=== PATIENT | male | born 2000 | race Hispanic/Latino ===

== ENCOUNTER 2023-09-08 06:25 | Day surgery (SDC) | payer BC ==
[~2023-09-08] VITALS: Ht 188 cm; Wt 158.8 kg
[2023-09-08] VITALS (12 sets, daily range): BP systolic 101–126; BP diastolic 52–88; PULSE 58–88; RESP 14–18
[2023-09-08] MEDS: 0.9%NACL 1000ML 1,000 ML IV ONE (09:00)
[2023-09-08] MEDS ORDERED: PROPOFOL 10 MG/ML 20ML VIAL IV ONE ×2 (09:29)
[2023-09-08] MEDS ORDERED: LIDOCAINE PF 100MG/5ML (2%) SYRINGE 5ML ONE (09:29)
[2023-09-08] MEDS ORDERED: GLYCOPYRROLATE 0.2 MG/ML 5 ML VIAL ONE (09:31)
== END 2023-09-08 11:15 | disposition home or self-care (01) ==
LOC: DAH 06:25
PROVIDERS: ATTEND Student in an Organized Health Care Education/Training Program
DX: R63.4 Abnormal weight loss (principal); K31.7 Polyp of stomach and duodenum; K29.70 Gastritis, unspecified, without bleeding; K22.89 Other specified disease of esophagus; K44.9 Diaphragmatic hernia without obstruction or gangrene; K31.89 Other diseases of stomach and duodenum; K76.0 Fatty (change of) liver, not elsewhere classified; E66.01 Morbid (severe) obesity due to excess calories; Z68.43 Body mass index [BMI] 50.0-59.9, adult
CPT/HCPCS: 43239; J7030; J2001; J2704 ×2; J3490

== ENCOUNTER → 2024-02-24 | Outpatient (CLI) | payer BC ==
[2024-02-24 14:29] LABS: BASOPHILS # (AUTO) 0.02 K/uL (0.00-0.20); BASOPHILS % (AUTO) 0.3 % (0.0-5.0); EOSINOPHILS # (AUTO) 0.08 K/uL (0.00-0.70); EOSINOPHILS % (AUTO) 1.1 % (0.0-8.0); HEMATOCRIT 48.3 % (42-54); IMMATURE GRANULOCYTE ABSOLUTE 0.03 K/uL (0-1); LYMPHOCYTES # (AUTO) 2.9 K/uL (1.0-4.8); LYMPHOCYTES % (AUTO) 38.4 % (21.0-51.0); MEAN CORPUSCULAR HEMOGLOBIN 28.8 pg (27.0-33.0); MEAN CORPUSCULAR HGB CONC 33.7 g/dL (32.0-36.0); MEAN CORPUSCULAR VOLUME 85.3 fL (79-99); MONOCYTES # (AUTO) 0.6 K/uL (0.1-1.0); MONOCYTES % (AUTO) 7.7 % (3.0-13.0); NEUTROPHILS % (AUTO) 52.1 % (40.0-77.0); PLATELET COUNT (AUTO) 239 K/uL (130-400); RED BLOOD CELL COUNT(AUTO) 5.66 MIL/uL (4.50-6.20); RED CELL DISTRIBUTION WIDTH 13.7 % (11.0-15.5); WHITE BLOOD COUNT (AUTO) 7.6 K/uL (4.8-10.8)
[2024-02-24 14:39] LABS: INR 1.03 (0.85-1.15); PROTHROMBIN TIME 11.1 SEC (9.6-11.6)
[2024-02-24 14:40] LABS: PARTIAL THROMBOPLASTIN TIME 28.8 SEC (26.3-35.5)
[2024-02-24 14:46] LABS: ALBUMIN 3.8 g/dL (3.5-5.0); BILIRUBIN,TOTAL 0.5 mg/dL (0.2-1.0); POTASSIUM 4.1 mmol/L (3.5-5.1); TOTAL PROTEIN, SERUM 7.7 g/dL (6.0-8.3)
--- NOTE | 2024-02-25 06:43 | EKG ---
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
== END | disposition home or self-care (01) ==
LOC: DAH 10:00 → EDSTATUS 13:00
PROVIDERS: ATTEND Surgery
DX: R94.31 Abnormal electrocardiogram [ECG] [EKG] (principal); K44.9 Diaphragmatic hernia without obstruction or gangrene; E66.01 Morbid (severe) obesity due to excess calories
CPT/HCPCS: 86900; 80053; 85025; 85610; 85730; 86850; 86901; 36415; 93005; A6260

== ENCOUNTER 2024-03-10 11:44 | Observation (INO) | payer BC ==
[2024-03-09 15:24] VITALS: BP 120/66; PULSE 55; RESP 18; TEMP 97.4
--- NOTE | 2024-03-09 16:10 | NUR ---
RE: EKG REPORTED EKG RESULTS TO DR SÁNCHEZ, NO NEW ORDERS RECEIVED. (CARDIAC CLEARANCE IN CHART)
[2024-03-09 16:37] LABS: BASOPHILS # (AUTO) 0.02 K/uL (0.00-0.20); BASOPHILS % (AUTO) 0.3 % (0.0-5.0); EOSINOPHILS # (AUTO) 0.07 K/uL (0.00-0.70); HEMATOCRIT 46.8 % (42-54); IMMATURE GRANULOCYTE ABSOLUTE 0.03 K/uL (0-1); LYMPHOCYTES # (AUTO) 2.7 K/uL (1.0-4.8); LYMPHOCYTES % (AUTO) 36.7 % (21.0-51.0); MEAN CORPUSCULAR HEMOGLOBIN 28.8 pg (27.0-33.0); MEAN CORPUSCULAR HGB CONC 33.8 g/dL (32.0-36.0); MEAN CORPUSCULAR VOLUME 85.2 fL (79-99); MONOCYTES # (AUTO) 0.5 K/uL (0.1-1.0); MONOCYTES % (AUTO) 7.2 % (3.0-13.0); NEUTROPHILS % (AUTO) 54.4 % (40.0-77.0); PLATELET COUNT (AUTO) 234 K/uL (130-400); RED BLOOD CELL COUNT(AUTO) 5.49 MIL/uL (4.50-6.20); RED CELL DISTRIBUTION WIDTH 13.7 % (11.0-15.5); WHITE BLOOD COUNT (AUTO) 7.3 K/uL (4.8-10.8)
[2024-03-09 16:47] LABS: CREATININE 1.1 mg/dL (0.5-1.3)
[2024-03-10] VITALS (24 sets, daily range): BP systolic 121–149; BP diastolic 65–87; PULSE 64–86; RESP 15–20; TEMP 97.1–98.2
[~2024-03-10] VITALS: Ht 182.9 cm; Wt 159.7 kg
--- NOTE | 2024-03-10 06:56 | EKG ---
[facility] Test Date: 2024-03-09 Test Time: 16:12:20 Pat Name: MATTHEW BENNETT Department: [facility] Room: 429 Gender: M Director Client: [id number] : 2000 Requested By: BREANNA GAMA Order Number: [id number] Reading MD: Aquiles Silverio Measurements Intervals [place] Rate: 53 P: 32 HI: 174 QRS: 26 QRSD: 92 T: 15 QT: 394 QTc: 371 Interpretive Statements Sinus rhythm Consider inferior infarct Compared to ECG 02/24/2024 14:59:22 No significant changes Electronically Signed On 03-13-2024 17:17:45 OUTPATIENT FACILITY PHYSICAL THERAPIST by Aquiles Silverio Please click the below link to view image of tracing.
[2024-03-10] MEDS: LACTATED RINGERS 1000ML 1,000 ML IV ONE (12:49)
[2024-03-10] MEDS: metRONIDazole 500MG/100ML BAG 200 ML ONE (12:49)
[2024-03-10] MEDS: ceFAZolin SODIUM 2 GM VIAL ONE (12:49)
[2024-03-10] MEDS: acetaMINOPHEN 100 ML ONE (13:22)
[2024-03-10] MEDS ORDERED: proPOFol 10 MG/ML 20ML VIAL IV ONE (13:26)
[2024-03-10] MEDS ORDERED: GLYCOPYRROLATE 0.2 MG/ML 5 ML VIAL ONE (13:26)
[2024-03-10] MEDS ORDERED: ondanSETRON 4MG INJ ONE (13:26)
[2024-03-10] MEDS ORDERED: MIDAZOLAM HCL 1 MG/ML 2ML VIAL ONE (13:26)
[2024-03-10] MEDS ORDERED: rocuRONium bROMide 10MG/1ML 5ML VL ONE ×2 (13:26→14:48)
[2024-03-10] MEDS ORDERED: NEOSTIGMINE METHYLSULFATE 1MG/ML IV ONE (13:26)
[2024-03-10] MEDS ORDERED: LIDOCAINE PF 100MG/5ML (2%) SYRINGE 5ML ONE (13:27)
[2024-03-10] MEDS ORDERED: FENTanyl CITRate PF 50 MCG/1 ML 2ML VIAL ONE ×2 (13:27→15:32)
[2024-03-10] MEDS ORDERED: dexaMETHasone SOD PHOSPHATE 4 MG/ML 1ML VIAL ONE (13:36)
[2024-03-10] MEDS: BUPIvacaine/PF 0.5% 30ML VIAL ONE (14:53)
[2024-03-10] MEDS: SUGAMMADEX SODIUM 200 MG/2 ML VIAL IV ONE (16:03)
--- NOTE | 2024-03-10 16:06 | OP ---
Operative Note: DATE OF PROCEDURE: 03/10/24 SURGEON: BRAENNA GAMA MD FAMILY ADVOCATE: Aftab Gama MD PA-C ANESTHESIA: General and Local ANESTHESIOLOGIST/BUGGY OPERATOR: [facility] [place]est[place] Team PREOPERATIVE DIAGNOSIS: Morbid obesity and associated comorbid conditions POSTOPERATIVE DIAGNOSIS: As above SYNOPSIS: Sleeve gastrectomy performed without incident. No significant hiatal hernia noted, therefore surgical correction deferred. PROCEDURE: 1. Robotic assisted sleeve gastrectomy 2. Omentoplasty 3. EGD ESTIMATED BLOOD LOSS: min, <30cc INDICATIONS: As above DESCRIPTION OF PROCEDURE: After standard precautions and preparations were undertaken a Veress needle and optical trocar were used to enter the abdominal cavity. All other instruments were placed under direct vision. The robotic system was docked in the standard fashion. We have been can our dissection by mobilizing the greater curve of the stomach. Care was taken to preserve the blood supply to the antrum. We mobilized up to the level of the angle of his and visualization of the left kathy of the diaphragm. My partner passed a 40 [place] bougie down of the stomach to decompress the stomach and allow for proper sizing during the stapling portion of the case. A linear stapler with staple line reinforcement was introduced into the abdominal cavity and we began stapling upwards towards the angle of his. Care was taken not to over tighten the incisura, not to cause any twisting or turning of the body of the stomach, and not to staple onto the GE junction. When stapling was complete the bougie was removed and my partner passed the EGD scope down into the stomach while I remained at the robotic console performing an omentoplasty. I sutured the nearby omentum to the cut edge of the stomach in order to reinforced the closure and add stability to the new free edge of the stomach. My partner insufflated the stomach to visualize the mucosal surfaces stomach. Everything appeared healthy and well perfused. There was no sign of leak or problem. The contour shape and size of the stomach was appropriate for a sleeve gastrectomy. The scope was removed without incident. The partial gastrectomy portion of the stomach was removed through one of our lateral trocar sites and the fascia was closed to prevent future hernia. All instrument counts were verified as correct including needles and sponges prior to ending the case. BREANNA GAMA MD Mar 10, 2024 16:06
--- NOTE | 2024-03-10 16:14 | PN ---
GENERAL SURGERY PROGRESS NOTE Date/Time Patient Seen: [03/10/2024, 1615 ] Problem List: [ ] Interval History: [Postop day 0. Pain tolerable with p.r.n. medication. ] Current Medications Medications (Trade) Dose Ordered Sig/Abimael Route Start Time Stop Time Status Last Admin Dose Admin Enoxaparin Sodium (Lovenox) 60 mg Q12H SQ 03/10/24 16:30 04/09/24 16:29 UNV Famotidine (Pepcid 20mg Vial) 20 mg BID IV 03/10/24 21:00 04/09/24 20:59 UNV Lactated Ringer's 1,000 ml @ 150 mls/hr Q6H40M IV 03/10/24 16:30 04/09/24 16:29 UNV Physical Examination: GENERAL: [No acute distress.] Abdominal exam: Incisions clean, dry and intact, Dermabond in place Vital Signs (last 8hr) Date Time Temp Pulse Resp B/P (MAP) Pulse Ox O2 Delivery O2 Flow Rate FiO2 03/10/24 12:05 97.2 64 18 121/65 97 Room Air Laboratory: [ ] Hematology Labs: Test 03/09/24 15:05 Range/Units White Blood Count 7.3 4.8-10.8 K/uL Red Blood Count 5.49 4.50-6.20 MIL/uL Hemoglobin 15.8 14.0-18.0 g/dL Hematocrit 46.8 42-54 % Mean Corpuscular Volume 85.2 79-99 fL Mean Corpuscular Hemoglobin 28.8 27.0-33.0 pg Mean Corpuscular Hemoglobin Concent 33.8 32.0-36.0 g/dL Red Cell Distribution Width 13.7 11.0-15.5 % Platelet Count 234 130-400 K/uL Mean Platelet Volume 11.1 H 7.5-10.5 fL Immature Granulocyte % (Auto) 0.4 0-1 % Neutrophils (%) (Auto) 54.4 40.0-77.0 % Lymphocytes (%) (Auto) 36.7 21.0-51.0 % Monocytes (%) (Auto) 7.2 3.0-13.0 % Eosinophils (%) (Auto) 1.0 0.0-8.0 % Basophils (%) (Auto) 0.3 0.0-5.0 % Neutrophils # (Auto) 4.0 1.8-7.7 K/uL Lymphocytes # (Auto) 2.7 1.0-4.8 K/uL Monocytes # (Auto) 0.5 0.1-1.0 K/uL Eosinophils # (Auto) 0.07 0.00-0.70 K/uL Basophils # (Auto) 0.02 0.00-0.20 K/uL Absolute Immature Granulocyte (auto 0.03 0-1 K/uL Nucleated Red Blood Cells 0.0 0.0-0.19 % Chemistry Labs: Test 03/09/24 15:05 Range/Units Sodium Level 140 136-145 mmol/L Potassium Level 4.0 3.5-5.1 mmol/L Chloride Level 103 101-111 mmol/L Carbon Dioxide Level 29 21-32 mmol/L Blood Urea Nitrogen 11 7-18 mg/dL Creatinine 1.1 0.5-1.3 mg/dL Glomerular Filtration Rate Calc 96 >90 mL/min Random Glucose 82 70-105 mg/dL Total Calcium 9.5 8.5-10.1 mg/dL Diagnostics / Radiology: [Copy/Paste Echos/Imaging Report here] Impression and Plan: [ Assessment/plan: Plan is for discharge home in the next day or two, as long as patient tolerating p.o. intake, ambulatory and pain under control. Discussed with patient and family. They understand and agree.] BREANNA GAMA MD Mar 10, 2024 16:14
[2024-03-10] MEDS: ENOXAPARIN SODIUM 60 MG/0.6 ML SQ SCH ×2 (16:30→20:08)
[2024-03-10] MEDS ORDERED: hydroMORPHone 1 MG INJ IVP PRN (16:30)
[2024-03-10] MEDS: LACTATED RINGERS 1000ML 1,000 ML IV SCH (16:30)
[2024-03-10] MEDS ORDERED: PROCHLORPERAZINE 10MG/2ML INJ IV PRN (16:30)
[2024-03-10] MEDS: FENTanyl CITRate PF 50 MCG/1 ML 2ML VIAL ONE (16:45)
[2024-03-10] MEDS: MEPERIDINE-PF 25 MG/ML SYG ONE (16:55)
--- NOTE | 2024-03-10 19:25 | NUR ---
PATIENT ARRIVED TO UNIT AWAKE AND ALERT. FAMILY AT BEDSIDE. NO S/S OF DISTRESS NOTED. 5 ABDOMINAL INCISIONS NOTED CLEAN AND INTACT. SEALED WITH DERMABOND. POST OP VITALS STARTED AND SCD'S IN PLACE.
[2024-03-10] MEDS: FAMOTIDINE 20MG VIAL IV ONE (19:32)
[2024-03-10] MEDS: FAMOTIDINE 20MG VIAL IV SCH (19:45)
[2024-03-10] MEDS: ondanSETRON 4MG INJ IVP PRN (19:45)
[2024-03-10] MEDS: ketOROlac 30MG VIAL (30MG/ML) IV PRN (19:46)
--- NOTE | 2024-03-10 19:46 | NUR ---
ACTIVITY, NAUSEA PATIENT UP AMBULATORY IN THE ROOM, C/O PAIN SEE PAIN ASSESSMENT AND TREATMENT, C/O NAUSEA , NO VOMITING, ZOFRAN 4 MG IVP GIVEN, PATIENT VOIDED WITHOUT DISCOMFORT, TEACH PATIENT AND FAMILY PLAN OF CARE AND EXPECTED OUTCOME, BOTH VERBALIZE UNDERSTANDING VIA TEACH BACK
--- NOTE | 2024-03-10 20:30 | NUR ---
MED EFFECT PATIENT NAUSEA SUBSIDED, PATIENT AMBULATORY AROUND NURSES STATION, TOLERATED WELL, BACK TO ROOM, IVF INFUSING WELL , CALL HAMMOND AT REACH
[2024-03-11 04:25] VITALS: BP 127/72; PULSE 86; RESP 19; TEMP 98.5
[2024-03-11] MEDS: HYDROcod/acetaMINOPHEN 7.5/325 MG 15 ML UDCUP PO PRN (07:24)
[2024-03-11 08:00] VITALS: BP 134/75; PULSE 101; RESP 19; TEMP 98.9
--- NOTE | 2024-03-11 08:53 | PN ---
GENERAL SURGERY PROGRESS NOTE Date/Time Patient Seen: [March 11, 2024 at 8:00 a.m. ] Problem List: [ Morbid severe obesity and associated medical conditions] Interval History: [Patient is a pleasant 23-year-old male status post vertical sleeve gastrectomy done by Dr. Islas. The patient is awake alert and oriented x3 and resting comfortably in bed. The patient is not in acute distress. The patient endorses pain that is tolerable with medication. The patient was on a clear liquid diet and tolerating well without any upper or lower GI symptoms. The patient is burping, denies flatus. Patient has been ambulating and following incentive spirometry recommendations. The patient states he has been voiding very well. Patient is clinically stable. Vital signs unremarkable. The patient is overall happy with the procedure and ready to go home today. ] Current Medications Medications (Trade) Dose Ordered Sig/Abimael Route Start Time Stop Time Status Last Admin Dose Admin Enoxaparin Sodium (Lovenox 60mg) 60 mg Q12H SQ 03/10/24 16:30 03/10/24 19:57 DC Enoxaparin Sodium (Lovenox 60mg) 60 mg Q12H SQ 03/10/24 21:00 04/09/24 20:59 03/10/24 20:08 60 MG Famotidine (Pepcid 20mg Vial) 20 mg BID IV 03/10/24 21:00 04/09/24 20:59 03/10/24 19:45 20 MG Lactated Ringer's 1,000 ml @ 150 mls/hr Q6H40M IV 03/10/24 16:30 04/09/24 16:29 03/11/24 05:18 150 MLS/HR Physical Examination: GENERAL: [No acute distress.] HEAD: [Normal with no signs of head trauma.] EYES: [PERRLA, EOMI, conjunctiva and sclera normal.] ENT: [Hearing grossly intact, normal oropharynx.] NECK: [Supple without JVD. There is no tenderness, lymphadenopathy, or masses. No thyromegaly. Normal carotid upstrokes without bruits.] LUNGS: [Clear breath sounds bilaterally. There are right basilar rales one third of the way up the chest. No wheezes, or rhonchi.] HEART: [Normal rate and rhythm. Normal S1 and S2 without mumurs, gallop or rub.] VASC: [Peripheral pulses +2 bilaterally.] ABD: [Bowel sounds normal, soft, nontender, no masses, no organomegaly. No a udible bruits.] : [Not examined] LYMPH: [No lymphadenopathy noted.] EXT: [No clubbing, cyanosis or edema.] SKIN: [No rashes or lesions noted.] NEURO: [Awake, alert, and oriented x3. No focal sensory or strength deficits noted.] Vital Signs (last 8hr) Date Time Temp Pulse Resp B/P (MAP) Pulse Ox O2 Delivery O2 Flow Rate FiO2 03/11/24 04:25 98.4 86 19 127/72 96 Room Air 21 Laboratory: [ ] Hematology Labs: Test 03/09/24 15:05 Range/Units White Blood Count 7.3 4.8-10.8 K/uL Red Blood Count 5.49 4.50-6.20 MIL/uL Hemoglobin 15.8 14.0-18.0 g/dL Hematocrit 46.8 42-54 % Mean Corpuscular Volume 85.2 79-99 fL Mean Corpuscular Hemoglobin 28.8 27.0-33.0 pg Mean Corpuscular Hemoglobin Concent 33.8 32.0-36.0 g/dL Red Cell Distribution Width 13.7 11.0-15.5 % Platelet Count 234 130-400 K/uL Mean Platelet Volume 11.1 H 7.5-10.5 fL Immature Granulocyte % (Auto) 0.4 0-1 % Neutrophils (%) (Auto) 54.4 40.0-77.0 % Lymphocytes (%) (Auto) 36.7 21.0-51.0 % Monocytes (%) (Auto) 7.2 3.0-13.0 % Eosinophils (%) (Auto) 1.0 0.0-8.0 % Basophils (%) (Auto) 0.3 0.0-5.0 % Neutrophils # (Auto) 4.0 1.8-7.7 K/uL Lymphocytes # (Auto) 2.7 1.0-4.8 K/uL Monocytes # (Auto) 0.5 0.1-1.0 K/uL Eosinophils # (Auto) 0.07 0.00-0.70 K/uL Basophils # (Auto) 0.02 0.00-0.20 K/uL Absolute Immature Granulocyte (auto 0.03 0-1 K/uL Nucleated Red Blood Cells 0.0 0.0-0.19 % Chemistry Labs: Test 03/09/24 15:05 Range/Units Sodium Level 140 136-145 mmol/L Potassium Level 4.0 3.5-5.1 mmol/L Chloride Level 103 101-111 mmol/L Carbon Dioxide Level 29 21-32 mmol/L Blood Urea Nitrogen 11 7-18 mg/dL Creatinine 1.1 0.5-1.3 mg/dL Glomerular Filtration Rate Calc 96 >90 mL/min Random Glucose 82 70-105 mg/dL Total Calcium 9.5 8.5-10.1 mg/dL Impression and Plan: [ Assessment/plan: Postoperative day one. The patient is progressing very well. We will continue to monitor and treat pain as needed. GI/DVT prophylaxis recommended and encouraged. Incision care, hydration, activity and dietary restrictions discussed with the patient. The patient understands and agrees. The plan is to advanced to a full liquid diet upon discharge. May resume home medications. May start bariatric multivitamins. We will discharge home today. Postoperative follow up appointment and postoperative medications sent by my office staff.] MAXI CONTEH Mar 11, 2024 08:53
--- NOTE | 2024-03-11 10:00 | NUR ---
Order received and visited with patient. Observed patient ambulating in the halls no signs or safety concerns at this time. DC from PT at this time.
--- NOTE | 2024-03-11 11:06 | NUR ---
PATIENT D/C HOME. ALL D/C INSTRUCTIONS REVIEWED WITH PATIENT. NO S/S OF DISTRESS NOTED. PATIENT WHEELED DOWNSTAIRS NO S/S OF DISTRESS NOTED.
--- NOTE | 2024-03-11 11:18 | NUR ---
Nutrition consult per Pt bariatric reviewed labs, notes, and medications. Pt phase 1 CLD, sedated per chart review. Pt reported he does not have MVI, visited the RD various times, has educational handouts, denied N/V, no gas, PO intake of 25%, has been walking around, denied NKFA, PCP visit in 7 days. present during visit. RD reviewed educational material for post-op diet recommendations. Pt was informed of importance of lifelong vitamin/mineral supplementation, choosing protein first during meals (pt was educated on higher protein requirements), choosing low calorie, sugar free, carbonated free and caffeine beverages. RD also informed pt on lifelong commitment to exercise and dietary recommendations for optimal success post surgery. RD encouraged getting blood work every 3 to 6 months, including B-vitamins, Pt verbalized understanding. RD informed Pt on moving around after procedure to prevent DVT, Pt verbalized understanding. Pt was encouraged to contact RD as questions arise and to attend support groups. Fair compliance suspected. Pt will benefit from outpatient bariatric dietitian follow up post procedure. Pt to follow up with PCP for labs. Recommendations: -Continue phase 1 bariatric diet for 1 week -Monitor electrolytes -Monitor diet tolerance -Monitor BM -Monitor wts -Monitor PO intake -Recommend Pt to follow up with PCP -Monitor goals of care RD available for consult per protocol Addendum: 03/11/24 at [address] Amended: Links added.
== END 2024-03-11 11:10 | disposition home or self-care (01) ==
LOC: DAH 11:44 → INTOOBSV 11:45 → DAH 11:45 → DAHIP 11:45 → EDSTATUS 16:55 → 4AH 17:17
PROVIDERS: ADMIT Surgery; ATTEND Surgery
DX: E66.01 Morbid (severe) obesity due to excess calories (principal); K44.9 Diaphragmatic hernia without obstruction or gangrene; K22.81 Esophageal polyp; K29.70 Gastritis, unspecified, without bleeding; K76.0 Fatty (change of) liver, not elsewhere classified; Z68.42 Body mass index [BMI] 45.0-49.9, adult; Z79.899 Other long term (current) drug therapy
CPT/HCPCS: 80048; 85025; 86850; 86900; 86901; 36415; 93005; 43775; 49999; 96374; 96372 ×2; 96375; 88312; 88307; 96376; A6260; G0378 ×17; A4663; J7030; A4215 ×3; J7120; J3490 ×5; J3010 ×3; J2003; J2250; J2704; J2405 ×2; J1885 ×3; J1650 ×3; J0665; J1100; J2175; J0690; A4930 ×2; A4223 ×2; A4222; A4221; A4600; J2710